=== PATIENT | male | born 1960 | race African-American/Black ===

== ENCOUNTER 2023-02-03 11:21 | Emergency (ER) | payer MEDICAID, OTHER ==
[~2023-02-03] VITALS: Ht 175.3 cm; Wt 67.1 kg
[2023-02-03 13:25] VITALS: BP 150/99; PULSE 103; RESP 18; TEMP 97.7; O2SAT 97
[2023-02-03 15:24] LABS: Basophils # (auto) 0 10 ^3/uL (0-0.2); Eosinophils # (auto) 0 10 ^3/uL (0-0.8); Hemoglobin 16.6 g/dL (13.5-17.5); Lymphocytes # (auto) 1.6 10 ^3/uL (0.4-5.4); Monocytes # (auto) 0.4 10 ^3/uL (0-1.3)
[2023-02-03 15:26] LABS: Basophils % (auto) 1.2 % (0.0-2.0); Hematocrit 47.4 % (41.0-53.0); Lymphocytes % (auto) 39.6 % (10.0-50.0); Mean Corpuscular Hemoglobin 35.8 pg (28.0-32.0); Mean Corpuscular Hgb Conc. 35.1 g/dL (32.0-36.0); Monocytes % (auto) 10.4 % (0.0-12.0); Neutrophils % (auto) 47.8 % (37.0-80.0); Nucleated Red Blood Cells % 0.3 %; Red Blood Cells 4.64 10^6/uL (4.5-5.90); Red Cell Distribution Width 13.4 % (11.8-14.3); White Blood Cell 4.2 10^3/uL (4.4-10.8)
[2023-02-03 15:34] LABS: Alanine Aminotransferase 43 U/L (7-40); Albumin 4.9 g/dL (3.2-4.8); Alkaline Phosphatase 71 U/L (46-116); Anion Gap 8 (5-15); Aspartate Aminotransferase 74 U/L (13-40); Calcium 10.1 mg/dL (8.7-10.4); Carbon Dioxide 27 mmol/L (20-30); Chloride 99 mmol/L (98-107); Glucose 84 mg/dL (74-106); Sodium 134 mmol/L (136-145)
[2023-02-03 15:35] LABS: Bilirubin, Total 0.5 mg/dL (0.2-1.0); Total Protein 8.6 g/dL (5.7-8.2)
[2023-02-03 15:38] LABS: BUN/Creatinine Ratio 4.9 (10.0-20.0); Blood Urea Nitrogen < 5 mg/dL (9-23)
[2023-02-03 15:45] LABS: INR 0.94 (0.9-1.15); Prothrombin Time 9.9 sec (9.3-11.8)
[2023-02-05 10:07] LABS: RPR Non Reactive (Non Reactive)
== END 2023-02-03 17:05 | disposition home or self-care (01) ==
LOC: ER 11:21
DX: N50.89 Other specified disorders of the male genital organs (principal); K13.29 Other disturbances of oral epithelium, including tongue; R74.8 Abnormal levels of other serum enzymes; E78.5 Hyperlipidemia, unspecified; F17.210 Nicotine dependence, cigarettes, uncomplicated
CPT/HCPCS: 36415; 76870; 80053; 85025; 85610; 86592; 86703